=== PATIENT | male | born 1995 | race African-American/Black ===

== ENCOUNTER 2022-09-21 22:22 | Emergency (ER) | payer SELFPAY ==
[2022-09-21] MEDS ORDERED: Acetaminophen 500 MG TAB ONE (23:11)
[2022-09-22 00:52] LABS: Bacteria/HPF None Seen HPF (None Seen); Bilirubin Negative (Negative); Blood, Urine Negative (Negative); CAUTI Indications for Culture Dysuria,urgency,freq; Clarity Clear (Clear); Glucose, Urine (Dipstick) Normal (Negative); Ketone, Urine Negative (Negative); Leukocyte Negative Leu/uL (Negative); Nitrite Negative (Negative); Protein, Urine (Dipstick) Negative (Neg-Trace); RBC/HPF 0-3 HPF (0-3); Specific Gravity, Urine 1.027 (1.002-1.036); Squamous Epithelial None Seen HPF (0-3); Urobilinogen Normal mg/dL (Less than 2); WBC/HPF 0-3 HPF (0-3)
[2022-09-22 01:04] LABS: Urine Culture Reflex No No
[2022-09-22] MEDS ORDERED: Lidocaine 1% MPF 2 ML VIAL ONE (01:22)
[2022-09-22] MEDS ORDERED: cefTRIAXone (ROCEPHIN) 500 MG VIAL ONE (01:22)
[2022-09-22 20:34] LABS: Chlam.trachomatis by PCR,Urine Not Detected (NotDetected); GC N.gonorrhoeae PCR,UrineVOID Not Detected (NotDetected)
== END 2022-09-22 01:55 | disposition home or self-care (01) ==
LOC: ERS 22:22
DX: N50.812 Left testicular pain (principal); F17.290 Nicotine dependence, other tobacco product, uncomplicated
CPT/HCPCS: 76870; 81001; 87086; 87491; 87591; 93976; 96372; J0696